=== PATIENT | female | born 1960 | race Caucasian/White ===

== ENCOUNTER 2018-07-31 20:58 | Emergency (ER) | payer OTHER ==
[~2018-07-31] VITALS: Ht 162.6 cm; Wt 60.3 kg
[2018-07-31 21:13] VITALS: Ht 162.6 cm; Wt 60.3 kg
[2018-08-01 01:17] VITALS: BP 122/76
== END 2018-08-01 01:18 | disposition home or self-care (01) ==
LOC: ED 20:58
DX: S60.464A Insect bite (nonvenomous) of right ring finger, initial encounter (principal); W57.XXXA Bitten or stung by nonvenomous insect and other nonvenomous arthropods, initial encounter; Y93.89 Activity, other specified; Y92.89 Other specified places as the place of occurrence of the external cause; Y99.8 Other external cause status
CPT/HCPCS: 90715